=== PATIENT | female | born 1990 | race Caucasian/White ===

== ENCOUNTER 2024-09-02 10:51 | Outpatient (CLI) | payer BC ==
[2024-09-02 11:38] LABS: BASOPHILS # (AUTO) 0.1 X10'3 (0-0.2); BASOPHILS % (AUTO) 0.8 % (0-1); EOSINOPHILS # (AUTO) 0.7 X10'3 (0-0.9); EOSINOPHILS % (AUTO) 7.6 % (0-6); HEMATOCRIT 42.4 % (35.0-45.0); HEMOGLOBIN 14.1 g/dl (12.0-16.0); LYMPHOCYTES # (AUTO) 2.8 X10'3 (1.1-4.8); LYMPHOCYTES % (AUTO) 30.2 % (21-51); MEAN CORPUSCULAR HGB CONC 33.3 g/dL (33.0-36.5); MEAN CORPUSCULAR VOLUME 84.3 FL (78-98); MONOCYTES # (AUTO) 0.8 X10'3 (0-0.9); MONOCYTES % (AUTO) 8.4 % (2-12); NEUTROPHILS # (AUTO) 4.9 X10'3 (1.8-7.7); PLATELET COUNT 317 X10'3 (140-440); RED BLOOD COUNT 5.03 X10'6 (4.20-5.60); RED CELL DISTRIBUTION WIDTH 13.7 % (11.5-14.5); WHITE BLOOD COUNT 9.2 X10'3 (4.5-11.0)
[2024-09-02 11:54] LABS: ALANINE AMINOTRANSFERASE 16 U/L (12-78); ALBUMIN 4.3 G/DL (3.4-5.0); ALKALINE PHOSPHATASE 88 IU/L (46-116); ANION GAP 7 (8-16); ASPARTATE AMINO TRANSFERASE 19 U/L (10-37); BILIRUBIN,TOTAL 1.1 MG/DL (0.1-1.0); BLOOD UREA NITROGEN 13 MG/DL (7-18); BUN/CREATININE RATIO 15.1 (10.0-20.0); CHLORIDE 101 MMOL/L (99-107); CHOL/HDL RATIO 2.8 (0.00-4.99); CHOLESTEROL 186 MG/DL (0-200); CREATININE 0.86 MG/DL (0.40-0.90); GLUCOSE 84 MG/DL (70-104); HDL CHOLESTEROL 67 MG/DL (35-60); LDL CHOLESTEROL 108 MG/DL (50-100); POTASSIUM 3.9 MMOL/L (3.5-5.1); SODIUM 136 MMOL/L (135-145); THYROID STIMULATING HORMONE 1.11 ulU/ml (0.34-4.50); TOTAL CARBON DIOXIDE 28.4 MMOL/L (24-32); TOTAL PROTEIN 8.5 G/DL (6.4-8.2); TRIGLYCERIDES 50 MG/DL (20-135); eGFR 76 ML/MIN
[2024-09-05 05:41] LABS: THIIODOTHRONINE, FREE, SERUM 3.3 pg/mL (2.0-4.4); THYROXINE (T4) 9.2 ug/dL (4.5-12.0)
== END 2024-09-02 23:59 | disposition home or self-care (01) ==
LOC: RAD 10:51
PROVIDERS: ATTEND Registered Nurse
DX: Z13.220 Encounter for screening for lipoid disorders (principal); E05.00 Thyrotoxicosis with diffuse goiter without thyrotoxic crisis or storm; R06.02 Shortness of breath; R09.82 Postnasal drip; Z71.89 Other specified counseling
CPT/HCPCS: 36415; 80053; 80061; 84436; 84443; 84481; 85025

== ENCOUNTER 2024-10-20 10:27 | Emergency (ER) | payer BC ==
[~2024-10-20] VITALS: Ht 165.1 cm; Wt 63.6 kg
[2024-10-20 10:28] VITALS: BP 123/90
[2024-10-20] MEDS: dexamethasone sod phosphate 10mg/ml inj IM STA (10:42)
[2024-10-20] MEDS: ipratropium/albuterol 3ml nebule NEB ONE (12:23)
[2024-10-20 12:24] VITALS: PULSE 18; PULSE 84; RESP 16; O2SAT 99
[2024-10-20 12:29] VITALS: PULSE 97; RESP 16; O2SAT 99
[2024-10-20] MEDS ORDERED: PRED20TA PO (13:35)
[2024-10-20 13:48] VITALS: TEMP 97.2
== END 2024-10-20 13:53 | disposition home or self-care (01) ==
LOC: ER 10:28
DX: J45.901 Unspecified asthma with (acute) exacerbation (principal); Z88.8 Allergy status to other drugs, medicaments and biological substances
CPT/HCPCS: 94640; 96372; 99283; J1100; 94760

== ENCOUNTER 2024-11-19 12:04 | Outpatient (CLI) | payer BC | END 2024-11-19 23:59 | disposition home or self-care (01) | LOC: RAD 12:04 | PROVIDERS: ATTEND Registered Nurse | DX: R06.02 Shortness of breath (principal) | CPT/HCPCS: 71046 ==

== ENCOUNTER 2025-01-03 13:34 | Outpatient (CLI) | payer BC ==
[2025-01-03 15:46] LABS: BASOPHILS # (AUTO) 0.1 X10'3 (0-0.2); BASOPHILS % (AUTO) 0.8 % (0-1); EOSINOPHILS # (AUTO) 0.7 X10'3 (0-0.9); EOSINOPHILS % (AUTO) 6.1 % (0-6); HEMOGLOBIN 13.5 g/dl (12.0-16.0); LYMPHOCYTES # (AUTO) 3.9 X10'3 (1.1-4.8); LYMPHOCYTES % (AUTO) 36.1 % (21-51); MEAN CORPUSCULAR HEMOGLOBIN 28.6 PG (27.0-31.0); MEAN CORPUSCULAR HGB CONC 33.8 g/dL (33.0-36.5); MEAN CORPUSCULAR VOLUME 84.4 FL (78-98); MEAN PLATELET VOLUME 8.6 FL (7.4-10.4); MONOCYTES # (AUTO) 0.7 X10'3 (0-0.9); MONOCYTES % (AUTO) 6.4 % (2-12); NEUTROPHILS # (AUTO) 5.5 X10'3 (1.8-7.7); NEUTROPHILS % (AUTO) 50.6 % (42-75); PLATELET COUNT 313 X10'3 (140-440); RED BLOOD COUNT 4.73 X10'6 (4.20-5.60); RED CELL DISTRIBUTION WIDTH 14.4 % (11.5-14.5); WHITE BLOOD COUNT 10.8 X10'3 (4.5-11.0)
== END 2025-01-03 23:59 | disposition home or self-care (01) ==
LOC: RAD 13:34
PROVIDERS: ATTEND Physician Assistant
DX: J45.50 Severe persistent asthma, uncomplicated (principal); J45.20 Mild intermittent asthma, uncomplicated; J45.998 Other asthma; J30.9 Allergic rhinitis, unspecified; R06.02 Shortness of breath; R53.83 Other fatigue
CPT/HCPCS: 36415; 82785; 85025; 86003

== ENCOUNTER 2025-04-14 10:24 | Outpatient (CLI) | payer BC ==
[2025-04-14 11:44] LABS: FREE T4 (FREE THYROXINE) 0.91 NG/DL (0.73-1.40); THYROID STIMULATING HORMONE 1.2 ulU/ml (0.34-4.50)
== END 2025-04-14 23:59 | disposition home or self-care (01) ==
LOC: RAD 10:24
PROVIDERS: ATTEND Nurse Practitioner Family
DX: E05.00 Thyrotoxicosis with diffuse goiter without thyrotoxic crisis or storm (principal)
CPT/HCPCS: 36415; 84439; 84443